=== PATIENT | male | born 1980 | race African-American/Black ===

== ENCOUNTER 2018-04-05 04:39 | Emergency (ER) | payer SELFPAY ==
[2018-04-05] MEDS ORDERED: KETOROLAC 30 MG/ML INJ ONE (05:34)
[2018-04-05 06:11] LABS: Absolute Lymphocytes (CBC) 1.3 K/uL (0.7-4.9); Absolute Monocytes 0.7 K/uL (0.1-1.3); Absolute Neutrophil 4.5 K/uL (1.8-8.0); Basophils % 1.1 % (0-1.3); Eosinophils % 2.5 % (0-4.4); Hematocrit 42.9 % (39.6-49.0); Lymphocytes % 18.9 % (15.3-44.8); Monocytes % 10.9 % (3.3-12.3); RBC Red Blood Cell Count 5.05 M/uL (4.33-5.43)
[2018-04-05 06:20] LABS: Albumin 3.6 g/dL (3.4-5.0); Bilirubin Direct 0.1 mg/dL (0-0.2); Bilirubin Total 0.4 mg/dL (0.2-1.0); Potassium 4.1 mmol/L (3.5-5.1); Protein, Total 7.6 g/dL (6.4-8.2)
[2018-04-05] MEDS ORDERED: PANTOPRAZOLE 40 MG INJ ONE (06:45)
[2018-04-05] MEDS ORDERED: ONDANSETRON 4 MG/2 ML VIAL ONE (06:45)
[2018-04-05] MEDS ORDERED: MORPHINE 4 MG/ML SYR ONE (06:45)
[2018-04-05] MEDS ORDERED: NA CHLORIDE 0.9% 1,000 ML ONE (06:46)
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
[2018-04-05] MEDS ORDERED: TAMSULOSIN 0.4 MG SR CAP ONE (07:42)
[2018-04-05] MEDS ORDERED: CEFTRIAXONE/SWI 1gm 1 GM/10 ML SYR ONE (07:43)
[2018-04-05 08:09] LABS: Urine Blood NEGATIVE (NEG); Urine Glucose NEGATIVE (NEG); Urine Protein NEGATIVE (NEG); Urine pH 8.5 (5.0-7.0)
--- NOTE | 2018-04-05 09:51 | RAD REPORT ---
EXAM DESCRIPTION: RAD - Chest Single View - 04/05/2018 7:10 am CLINICAL HISTORY: Abdominal pain, abdominal distention COMPARISON: None. TECHNIQUE: AP portable chest image was obtained 0706 hours . FINDINGS: Lungs are clear. Mild cardiomegaly without vascular engorgement. No measurable pleural eff usion and no pneumothorax. No acute bony abnormality seen. No acute aortic findings suspected. IMPRESSION: No failure, infiltrate or acute finding. Mild cardiomegaly.
--- NOTE | 2018-04-05 20:32 | RAD REPORT ---
EXAM DESCRIPTION: CT - Abdomen Pelvis W Contrast CLINICAL HISTORY: The patient si 38 years old and is Male; ABD PAIN COMPARISON: No relevant prior studies available. TECHNIQUE: Axial computed tomography images of the abdomen and pelvis with intravenous contrast. Sag ittal and coronal reformatted images were created and reviewed. This CT exam was performed using one or more of the following dose reduction techniques: Automated exposure control, adjustment of the mA and/or kV according to patient size, and/or use of iterative reconstruction technique. FINDINGS: Lung bases: Unremarkable. No mass. No consolidation. ABDOMEN: Liver: Unremarkable. No mass. Gallbladder and bile ducts: No calcified stones. No ductal dilation. Pancreas: No ductal dilation No mass. Spleen: Unremarkable. Adrenals: Unremarkable. No mass. Kidneys and ureters: Mild left hydroureteronephrosis is present secondary to a 4 mm left UVJ calculus . Edema of the the left kidney with associated perinephric and periureteral stranding is present. The r ight kidney is normal. Stomach and bowel:The stomach is minimally fluid-filled. The small bowel is normal in caliber. Stool is present throughout the colon. There is no mucosal thickening or evidence of bowel obstruction. PELVIS: Appendix: No findings to suggest acute appendicitis. Bladder: Unremarkable. No mass. Reproductive: Calcifications are present within the prostate. ABDOMEN and PELVIS: Intraperitoneal space: Unremarkable. No free air. No significant fluid fluid collection. Bones/joints: No acute fracture. Soft tissues: The soft tissues are normal. Vasculature: Unremarkable. No abdominal aortic aneurysm. Lymph nodes: Unremarkable. No enlarged lymph nodes. IMPRESSION: Mild left hydroureteronephrosis is present secondary to a 4 mm left UVJ calculus. 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 The interpreting radiologist is f ully responsible for the content of the report.
== END 2018-04-05 08:51 | disposition home or self-care (01) ==
LOC: ER 04:39
DX: N13.2 Hydronephrosis with renal and ureteral calculous obstruction (principal)
CPT/HCPCS: 36415; 71045; 74177; 80048; 80076; 81003; 83690; 85025; 96361; 96365; 96375; 99284; C9113; J0696; J2405; J7030; Q9967

== ENCOUNTER 2019-08-20 14:58 | Emergency (ER) | payer OTHER, SELFPAY ==
[2019-08-20] MEDS ORDERED: NA CHLORIDE 0.9% 1,000 ML ONE (15:39)
[2019-08-20 16:04] LABS: Hematocrit 40.4 % (39.6-49.0); Lymphocytes % 32.4 % (15.3-44.8); MPV 10.4 fL (7.6-11.3); RBC Red Blood Cell Count 4.76 M/uL (4.33-5.43)
[2019-08-20 16:24] LABS: Potassium 4.3 mmol/L (3.5-5.1)
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
[2019-08-20 16:41] LABS: Urine Blood NEGATIVE (NEG); Urine Glucose NEGATIVE (NEG); Urine Protein 1+ (NEG); Urine Specific Gravity 1.015 (1.005-1.030)
[2019-08-20 16:59] VITALS: TEMP 99.8
[2019-08-20 17:01] VITALS: BP 132/68; O2SAT 98
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
== END 2019-08-20 16:51 | disposition home or self-care (01) ==
LOC: ER 14:58
DX: E86.9 Volume depletion, unspecified (principal); R19.7 Diarrhea, unspecified
CPT/HCPCS: 85025; 80048; 36415; 81003; 96360; 99284; J7030